=== PATIENT | male | born 1955 | race Caucasian/White ===

== ENCOUNTER 2021-07-24 09:22 | Emergency (ER) | payer BC, MEDICARE ==
[~2021-07-24] VITALS: Ht 170.2 cm; Wt 102.7 kg
[~2021-07-24 09:22] MED LIST: ASPI-630 PO; ATOR40TA59 PO; LISI10TA16 PO
[2021-07-24 10:11] VITALS: BP 132/91
--- NOTE | 2021-07-24 10:16 | PHYS DOC ---
Past History Past Medical History: High Cholesterol, Hypertension, Other (ARUNA LANG APRN) Past Surgical History: No Surgical History (ARUNA LANG APRN) Smoking: Non-smoker Alcohol Use: None Drug Use: None (ARUNA LANG APRN) Adult General Chief Complaint Chief Complaint: LOWER EXT PAIN HPI HPI Patient is a 65-year-old male presents to the emergency department complaining of left calf pain after walking in the parade this past . Patient reports he took ibuprofen with good pain relief on Friday however his pain returned over the weekend. Patient is worried he may have a blood clot. Patient denies numbness or tingling to his lower extremity, denies swelling of his lower extremities. Patient does report a history of ascending aortic aneurysm that has been closely monitored yearly since 2012 without surgical repair. Patient denies allergies to medications, states he takes 81 mg aspirin daily, 10 mg atorvastatin, 20 mg lisinopril for high blood pressure. Patient reports he took 400 mg Motrin at 7:30 AM for a 10 out of 10 pain, currently has a 1-2 out of 10 Pain. Patient denies shortness of breath, chest pains. Patient denies other physical complaints or physical concerns. Patient denies history of cigarette smoking, denies drinking alcohol or illicit drug use. (ARUNA LANG APRN) Review of Systems Review of Systems 14 body systems of review of systems have been reviewed. See HPI for pertinent positives and negative responses, otherwise all other systems are negative, nonpertinent or noncontributory. Constitutional: Negative except as outlined in HPI above. Skin: Negative except as outlined in HPI above. Eyes: Negative except as outlined in HPI above. HENT: Negative except as outlined in HPI above. Respiratory: Negative except as outlined in HPI above. Cardiovascular: Negative except as outlined in HPI above. GI: Negative except as outlined in HPI above. : Negative except as outlined in HPI above. Musculoskeletal: Negative except as outlined in HPI above. Integument: Negative except as outlined in HPI above. Neurologic: Negative except as outlined in HPI above. Endocrine: Negative except as outlined in HPI above. Lymphatic: Negative except as outlined in HPI above. Psychiatric: Negative except as outlined in HPI above. (ARUNA LANG APRN) Allergies Allergies Allergies Coded Allergies Type Severity Reaction Last Updated Verified No Known Drug Allergies 11/10/13 No (ARUNA LANG APRN) Physical Exam Physical Exam Constitutional: Well developed, well nourished, no acute distress, non-toxic appearance. 65-year-old male in no apparent distress. HENT: Normocephalic, atraumatic. Eyes: Conjunctiva normal, no discharge. Neck: Normal range of motion, no stridor. Cardiovascular: No cyanosis appreciated, distal cap refill less than 2 seconds. Lungs & Thorax: Patient is in no respiratory distress, no audible adventitious lung sounds appreciated. Abdomen: Nontender, no abnormalities noted. Skin: Warm, dry, no erythema, no rash. Back: No tenderness, no deformities. Extremities: No tenderness, no cyanosis, no clubbing, ROM intact, no edema. Except for left calf, pain to palpation over left calf muscle, positive Homans sign, no swelling, no skin discoloration, calves equal in diameter bilaterally, distal cap refill less than 2 seconds, 2+ dorsalis pedis/posterior tibial pulses bilaterally. No cyanosis appreciated. No pain elicited with passive range of motion of the knee and ankle joints of the left. Neurologic: Alert and oriented X 3, normal motor function, normal sensory function, no focal deficits noted. Psychologic: Affect normal, judgement normal, mood normal. (ARUNA LANG APRN) Current Patient Data Vital Signs Vital Signs Date Time Temp Pulse Resp B/P (MAP) Pulse Ox O2 Delivery O2 Flow Rate FiO2 07/24/21 09:29 98.3 104 16 132/91 (105) 96 Room Air (ARUNA LANG APRN) EKG EKG [] (ARUNA LANG APRN) Radiology/Procedures Radiology/Procedures PATIENT: ARUNA CULP ACCOUNT: [id number] : 1955 LOCATION: ER AGE: 65 SEX: M EXAM STATUS: REG ER ORD. PHYSICIAN: ARUNA LANG APRN REASON: Right calf pain PROCEDURE: VENOUS LOWER EXTREMITY RIGHT Examination: Right Lower Extremity Venous Doppler Ultrasound History: Right lower extremity pain Comparison: None Procedure: Pope scale, color flow 2D and spectal waveform analysis images are obtained with and without compression in the area of the common femoral vein, superficial femoral vein - femoral vein junction, main femoral vein (superficial femoral vein) and popliteal vein. Veins of the proximal calf are also imaged. Findings: There is normal duplex flow, color flow and compressibility of all visualized ve in segments. No evidence of deep venous thrombus is present. Impression: No evidence of DVT in the right lower extremity venous system. Electronically signed by: Raul Huerta MD (07/24/2021 10:14 AM) [id number] (ARUNA LANG APRN) Heart Score C/O Chest Pain: No Risk Factors: Risk Factors: DM, Current or recent (<one month) smoker, HTN, HLP, family history of CAD, obesity. Risk Scores: Risk Factors: DM, Current or recent (<one month) smoker, HTN, HLP, family history of CAD, obesity. (ARUNA LANG APRN) Course & Med Decision Making Course & Med Decision Making Pertinent Labs and Imaging studies reviewed. (See chart for details) 65-year-old male, vital signs reviewed, presents emergency department concerning left calf pain. Explanation of events consistent with calf strain however physical examination reveals positive Homans' sign, there is no other obvious physical discrepancy appreciated this is most likely a muscle strain however related to patient's age and history will order venous Doppler left lower extremity rule out DVT. Venous Doppler study negative for DVT or other acute vascular process of the left lower extremity. Discussed findings with patient, reevaluation finds patient without pain at this time. Discussed with patient RICE therapy, patient requested crutches for severe pain, discussed with patient using [id number] ibuprofen 600 mg every 4-6 hours for the next 5 days. Strict follow-up with primary care physician for ongoing pain management and reevaluation if pain is not significantly better by the end of the week. Diagnosis left calf strain, patient is amenable to ED discharge planning. Discussed with the patient all findings and diagnostic testing as well as the need to follow-up with their primary care provider for further evaluation and treatment or return to the ED if any new or worsening symptoms. Strict return precautions were also discussed at length, the patient voiced understanding and agreement with the discharge planning. The patient was nontoxic in appearance, in no apparent distress, and hemodynamically stable at the time of disposition. (ARUNA LANG APRN) Course & Med Decision Making I was the Attending physician on the above date of service of this patient. This patient was evaluated, examined, treated, and dispositioned from the emergency department by the mid-level practitioner. Although I was working at the time , no assistance was requested. Electronically signed, Tabatha Hess DO (TABATHA HESS DO) Talia Disclaimer Dragon Disclaimer This electronic medical record was generated, in whole or in part, using a voice recognition dictation system. (ARUNA LANG APRN) Departure Departure: Impression: Primary Impression: Strain of left calf muscle Disposition: HOME / SELF CARE / HOMELESS Condition: GOOD Referrals: MINH FRASER MD (PCP) Patient Instructions: Elastic Bandage and RICE, Muscle Strain Additional Instructions: You were seen today in the emergency department for pain in the left calf muscle . A Doppler study did not reveal any concerning findings, the study did not find a blood clot of your left leg. As we discussed, this is most likely a muscle strain of your calf. Please use RICE therapy, this is an acronym for rest, ice, compression, elevation. A Josh wrap was applied to help with muscle pain discomfort today in the emergency department, please use ice packs 30 minutes on and 30 minutes off while awake for the next 48 to 72 hours. You may use crutches to assist with walking for severe pain. You may use [id number] ibuprofen, as we discussed 600 mg every 4-6 hours for the next 5 days, if not significantly better and pain-free after 5 days, please follow-up with your primary care physician Dr. Fraser for a reevaluation and ongoing pain management. Thank you for visiting our Emergency Department. It was a pleasure taking care of you today in the emergency department and we appreciate you trusting us with your care. If any additional problems come up don't hesitate to return to visit us. Please follow up with your primary care provider so they can plan additional care if needed and know about the problem that you had. If symptoms worsen come back to the Emergency Department. Any concerning symptoms that start such as chest pain, shortness of air, weakness or numbness on one side of the body, running high fevers or any other concerning symptoms return to the ER. EMERGENCY DEPARTMENT GENERAL DISCHARGE INSTRUCTIONS Thank you for coming to [facility] (ED) today and trusting us with you care. We trust that you had a positivie experience in our Emergency Department. If you wish to speak to the department management, you may call the director at [phone]. YOUR FOLLOW UP INSTRUCTIONS ARE FOLLOWS: 1. Do you have a private Doctor? If you do not have a private doctor, please ask for a resource list of physicians or clinics that may be able to assist you with follow up care. 2. The Emergency Physician has interpreted your x-rays. The X-Ray specialist will also review them. If there is a change in the findings, you will be notified in 48 hours when at all possible. 3. A lab test or culture has been done, your results will be reviewed and you will be notified if you need a change in treatment. ADDITIONAL INSTRUCTIONS AND INFORMATION: 1. Your care today has been supervised by a physician who is specially trained in emergency care. Many problems require more than one evaluation for a complete diagnosis and treatment. We recommend that you schedule your follow up appointment as recommended to ensure complete treatment of you illness or injury. If you are unable to obtain follow up care and continue to have a problem, or if your condition worsens, we recommend that you return to the ED. 2. We are not able to safely determine your condition over the phone nor are we able to give sound medical advice over the phone. For these safety reasons, if you call for medical advice we will ask you to come to the ED for further evaluation. 3. If you have any questions regarding these discharge instructions please call the ED at [phone]. SAFETY INFORMATION: In the interest of safety, wellness, and injury prevention; we encourage you to wear your sealbelt, if you smoke; quite smoking, and we encourage family to use a protective helmet for bicycling and other sporting events that present an increased risk for head injury. IF YOUR SYMPTOMS WORSEN OR NEW SYMPTOMS DEVELOP, OR YOU HAVE CONCERNS ABOUT YOUR CONDITION; OR IF YOUR CONDITION WORSENS WHILE YOU ARE WAITING FOR YOUR FOLLOW UP APPOINTMENT; EITHER CONTACT YOUR PRIMARY CARE DOCTOR, THE PHYSICIAN WHOSE NAME AND NUMBER YOU WERE GIVEN, OR RETURN TO THE ED IMMEDIATELY. ARUNA LANG APRN Jul 24, 2021 10:16 TABATHA HESS DO Jul 25, 2021 07:01
--- NOTE | 2021-07-24 10:17 | RAD ---
Examination: Right Lower Extremity Venous Doppler Ultrasound History: Right lower extremity pain Comparison: None Procedure: Pope scale, color flow 2D and spectal waveform analysis images are obtained with and witho ut compression in the area of the common femoral vein, superficial femoral vein - femoral vein juncti on, main femoral vein (superficial femoral vein) and popliteal vein. Veins of the proximal calf are a lso imaged. Findings: There is normal duplex flow, color flow and compressibility of all visualized vein segments. No evide nce of deep venous thrombus is present. Impression: No evidence of DVT in the right lower extremity venous system. Electronically signed by: Raul Huerta MD (07/24/2021 10:14 AM) [id number]
[2021-07-24] MEDS ORDERED: KETOROLAC 60 MG/2 ML VIAL. IM ONE (10:45)
== END 2021-07-24 11:24 | disposition home or self-care (01) ==
LOC: ER 09:22
DX: S86.812A Strain of other muscle(s) and tendon(s) at lower leg level, left leg, initial encounter (principal); X58.XXXA Exposure to other specified factors, initial encounter; Y93.01 Activity, walking, marching and hiking; Y92.89 Other specified places as the place of occurrence of the external cause; Y99.8 Other external cause status; E78.00 Pure hypercholesterolemia, unspecified; I10 Essential (primary) hypertension
CPT/HCPCS: 93971; 96372; 99284; J1885